=== PATIENT | female | born 1970 | race Two or more races ===

== ENCOUNTER → 2016-07-31 | Outpatient (REF) | payer OTHER | LOC: M LAB REF 17:14 | PROVIDERS: ATTEND Physician Assistant | DX: R50.9 Fever, unspecified (principal) ==

== ENCOUNTER → 2017-02-06 | Outpatient (REF) | payer OTHER ==
[2017-02-06 12:47] LABS: MEAN CORPUSCULAR HEMOGLOBIN 30.6 pg (27.0-33.0); MEAN CORPUSCULAR HGB CONC 34.3 g/dl (32.0-36.5); MEAN CORPUSCULAR VOLUME 89.4 fl (80.0-96.0); RED CELL DISTRIBUTION WIDTH 11.7 % (11.5-14.5); WHITE BLOOD COUNT 4.8 K/mm3 (4.0-10.0)
[2017-02-06 13:36] LABS: ALBUMIN/GLOBULIN RATIO 1.18 (1.00-1.93); ALKALINE PHOSPHATASE 48 U/L (45-117); ALT/SGPT 20 U/L (12-78); ANION GAP 5 MEQ/L (8-16); AST/SGOT 16 U/L (15-37); BILIRUBIN,TOTAL 0.4 MG/DL (0.2-1.0); BLOOD UREA NITROGEN 22 MG/DL (7-18); CALCIUM LEVEL 9.3 MG/DL (8.5-10.1); CARBON DIOXIDE LEVEL 29 MEQ/L (21-32); CHLORIDE LEVEL 107 MEQ/L (98-107); CHOLESTEROL LEVEL 211 MG/DL (<200); CREATININE FOR GFR 0.82 MG/DL (0.55-1.02); FERRITIN 52 NG/ML (8-252); GLOMERULAR FILTRATION RATE > 60.0 (>58); GLUCOSE, FASTING 84 MG/DL (70-105); PERCENT SATURATION 30.6 % (13.2-45.0); POTASSIUM SERUM 4.7 MEQ/L (3.5-5.1); SODIUM LEVEL 141 MEQ/L (136-145); TOTAL IRON BINDING CAPACITY 258 UG/DL (250-450); TOTAL PROTEIN 7.4 GM/DL (6.4-8.2); TRIGLYCERIDES LEVEL 67 MG/DL (<150)
== END ==
LOC: M SFHCADAM 08:16
PROVIDERS: ATTEND Family Medicine
DX: D50.0 Iron deficiency anemia secondary to blood loss (chronic) (principal); G43.709 Chronic migraine without aura, not intractable, without status migrainosus; Z13.220 Encounter for screening for lipoid disorders

== ENCOUNTER → 2017-02-11 | Outpatient (CLI) | payer OTHER ==
--- NOTE | 2017-02-12 07:16 | REP ---
Clinical: Chest pain . Comparison: 02/08/2013 . Technique: PA and lateral. Findings: The mediastinum and cardiac silhouette are normal. The lung lyman are clear and without acute consolidation, effusion, or pneumothorax. The skeletal structures are intact and normal. Impression: 1. No acute cardiopulmonary process. Signed by Reynaldo Mast MD 02/12/2017 07:08 A
== END ==
LOC: M ADAMS 16:31
PROVIDERS: ATTEND Family Medicine
DX: R09.89 Other specified symptoms and signs involving the circulatory and respiratory systems (principal)

== ENCOUNTER → 2017-02-27 | Outpatient (REF) | payer OTHER | LOC: M SFHCADAM 12:28 | PROVIDERS: ATTEND Physician Assistant | DX: Z12.4 Encounter for screening for malignant neoplasm of cervix (principal) ==

== ENCOUNTER → 2017-12-01 | Outpatient (CLI) | payer OTHER | LOC: M ADAMS 11:54 | DX: R09.1 Pleurisy (principal) | CPT/HCPCS: 71046 ==

== ENCOUNTER → 2017-12-01 | Outpatient (REF) | payer OTHER ==
[2017-12-01 20:01] LABS: BASO % 0.7 % (0.0-1.0); EOS # 0.2 10^3/uL (0.0-0.50); EOS % 3.3 % (0.0-3.0); HEMATOCRIT 39.7 % (36.0-47.0); HEMOGLOBIN 13.7 g/dl (12.0-15.5); IMMATURE GRANULOCYTE % 0.2 % (0-3.0); LYMPH # 2.3 10^3/uL (1.5-4.5); LYMPH % 42.5 % (24.0-44.0); MEAN CORPUSCULAR HEMOGLOBIN 32.5 pg (27.0-33.0); MEAN CORPUSCULAR HGB CONC 34.5 g/dl (32.0-36.5); MEAN CORPUSCULAR VOLUME 94.1 fl (80.0-96.0); MONO # 0.5 10^3/uL (0.0-0.8); MONO % 8.9 % (0.0-5.0); NEUTROPHILS # 2.4 10^3/uL (1.8-7.7); NEUTROPHILS % 44.4 % (36.0-66.0); PLATELET COUNT, AUTOMATED 221 10^3/uL (150-450); RED BLOOD COUNT 4.22 10^6/uL (4.00-5.40); RED CELL DISTRIBUTION WIDTH 12.2 % (11.5-14.5); WHITE BLOOD COUNT 5.4 10^3/uL (4.0-10.0)
[2017-12-01 20:09] LABS: ANION GAP 6 MEQ/L (8-16); BLOOD UREA NITROGEN 17 MG/DL (7-18); CALCIUM LEVEL 9.2 MG/DL (8.5-10.1); CARBON DIOXIDE LEVEL 29 MEQ/L (21-32); CHLORIDE LEVEL 107 MEQ/L (98-107); CREATININE FOR GFR 0.83 MG/DL (0.55-1.30); GLOMERULAR FILTRATION RATE > 60.0 (>58); GLUCOSE, FASTING 76 MG/DL (70-100); POTASSIUM SERUM 4.2 MEQ/L (3.5-5.1); SODIUM LEVEL 142 MEQ/L (136-145)
[2017-12-01 20:21] LABS: ERYTHROCYTE SEDIMENTATION RATE 16 mm/hr (0-20)
== END ==
LOC: M SFHCADAM 11:50
DX: R09.1 Pleurisy (principal)

== ENCOUNTER → 2018-04-01 | Outpatient (CLI) | payer OTHER | LOC: M RAD 15:30 | DX: L76.82 Other postprocedural complications of skin and subcutaneous tissue (principal) | CPT/HCPCS: 76705 ==

== ENCOUNTER → 2018-04-01 | Outpatient (REF) | payer OTHER | LOC: M SFHCADAM 14:39 | DX: R30.0 Dysuria (principal) | CPT/HCPCS: 87086 ==

== ENCOUNTER → 2018-04-01 | Outpatient (REF) | payer OTHER | LOC: M SFHCADAM 19:10 | DX: R30.0 Dysuria (principal) ==

== ENCOUNTER → 2018-06-25 | Outpatient (REF) | payer OTHER ==
[2018-06-25 19:27] LABS: CALCIUM LEVEL 9.4 MG/DL (8.5-10.1); CREATININE FOR GFR 1.12 MG/DL (0.55-1.30); GLOMERULAR FILTRATION RATE 55.8 (>58)
== END ==
LOC: M SFHCADAM 15:01
PROVIDERS: ATTEND Family Medicine
DX: N18.2 Chronic kidney disease, stage 2 (mild) (principal); Z52.4 Kidney donor

== ENCOUNTER → 2019-05-04 | Outpatient (CLI) | payer OTHER ==
--- NOTE | 2019-05-04 14:39 | REPPI ---
Left unilateral rib series: Five views including PA chest. History: Left flank pain left rib side pain. Comparison chest x-ray: December 01, 2017. Findings: PA chest radiograph is normal. There is no evidence of pneumothorax or hydrothorax. Mediastinum is not widened. Heart size is normal. Pleural angles are sharp. No infiltrate is seen. Multiple views of the left rib cage show clips in the left upper quadrant of the abdomen. The left rib cage is intact. No rib fracture or bony destructive lesion is appreciated. Impression: Negative radiographs of the left rib cage. Electronically Signed by Christiano Villanueva MD 05/04/2019 02:31 P
== END ==
LOC: M PLAIMG 10:48
PROVIDERS: ATTEND Nurse Practitioner Family
DX: R10.9 Unspecified abdominal pain (principal)

== ENCOUNTER → 2019-06-21 | Outpatient (CLI) | payer OTHER ==
--- NOTE | 2019-06-22 04:44 | REP ---
Clinical: Stage III chronic renal disease. Technique: Real time cyr scale ultrasound examination using curved array transducer. Findings: The right kidney is normal in reniform shape and echogenicity without significant hydronephrosis. A 10 mm complex cyst in the midpole region is suggested along with mild pelviectasis. Bladder is unremarkable and right ureteral jet is noted. Given history of left kidney donation. Impression: 10 mm complex cyst in the mid pole right kidney. Mild fullness to the collecting system without erick hydronephrosis. Electronically Signed by Reynaldo Mast MD 06/22/2019 04:35 A
== END ==
LOC: M RAD 16:23
PROVIDERS: ATTEND Nurse Practitioner Family
DX: Z52.4 Kidney donor (principal); N18.3 Chronic kidney disease, stage 3 (moderate)

== ENCOUNTER → 2020-05-22 | Outpatient (CLI) | payer OTHER ==
--- NOTE | 2020-05-23 07:55 | REP ---
INDICATION: CYST OF KIDNEY CKD III COMPARISON: Renal ultrasound dated 06/21/2019 TECHNIQUE: Axial noncontrast images from the lung bases to the pubic symphysis with coronal and sagittal reformations. This CT examination was performed using the following dose reduction techniques: Automated exposure control, adjustment of mA and/or kv according to the patient's size, and use of iterative reconstruction technique. FINDINGS: Lung bases are clear. Visualized heart and pericardium normal. Liver, spleen, pancreas, gallbladder, and bilateral adrenal glands are normal. Patient is noted to be status post left nephrectomy. The right kidney appears relatively normal although subtle 1 cm hypodense lesion along the lateral midpole cannot be excluded. The enteric system is unremarkable and without obstruction or acute inflammatory process. Normal terminal ileum and appendix identified in the right lower quadrant. Pelvis demonstrates normal bladder and age-appropriate uterus/adnexa. Patient appears to be status post tubal ligation, but the right-sided clip appears to be free in the upper pelvis no longer related to the right adnexa. No ascites. No free air. No adenopathy. No focal inflammatory stranding. Abdominal aorta without aneurysm. Musculoskeletal structures are intact and without acute osseous abnormality. IMPRESSION: 1. Solitary right kidney with suggestion for 1 cm midpole cyst is incompletely evaluated due to the lack of contrast enhancement. 2. Remainder of the examination is relatively normal as above. <Electronically signed by Reynaldo Mast > 05/23/20 [id number]
== END ==
LOC: M RAD 18:15
PROVIDERS: ATTEND Nurse Practitioner Family
DX: N18.31 Chronic kidney disease, stage 3a (principal); N28.1 Cyst of kidney, acquired

== ENCOUNTER → 2021-05-29 | Outpatient (CLI) | payer OTHER | LOC: M RAD 16:07 | PROVIDERS: ATTEND Nurse Practitioner Family | DX: N28.1 Cyst of kidney, acquired (principal); N18.31 Chronic kidney disease, stage 3a ==

== ENCOUNTER → 2021-07-09 | Outpatient (REF) | payer OTHER ==
[2021-07-09 19:08] LABS: BACTERIA, URINE AUTO NEGATIVE (NEGATIVE); MUCUS, URINE SMALL (NEGATIVE); RBC, URINE AUTO 0 /HPF (0-3); SQUAMOUS EPITHELIAL CELL UR AU 0 /HPF (0-6); WBC, URINE AUTO 4 /HPF (0-3)
== END ==
LOC: M LAB REF 16:43
PROVIDERS: ATTEND Nurse Practitioner Family
DX: E83.42 Hypomagnesemia (principal); R31.9 Hematuria, unspecified

== ENCOUNTER → 2022-02-07 | Outpatient (CLI) | payer OTHER | LOC: M WUC 14:58 | PROVIDERS: ATTEND Nurse Practitioner Family | DX: Z11.1 Encounter for screening for respiratory tuberculosis (principal) ==

== ENCOUNTER → 2023-08-10 | Outpatient (REF) | payer OTHER | LOC: M PLALAB 15:29 | PROVIDERS: ATTEND Obstetrics & Gynecology | DX: Z01.419 Encounter for gynecological examination (general) (routine) without abnormal findings (principal) | CPT/HCPCS: 87624; G0123 ==

== ENCOUNTER → 2023-09-23 | Outpatient (CLI) | payer OTHER | LOC: M WHC 14:53 | PROVIDERS: ATTEND Obstetrics & Gynecology | DX: Z12.31 Encounter for screening mammogram for malignant neoplasm of breast (principal) ==

== ENCOUNTER → 2024-05-31 | Outpatient (CLI) | payer OTHER | LOC: M LAB 12:43 | PROVIDERS: ATTEND Physician Assistant | DX: Z20.828 Contact with and (suspected) exposure to other viral communicable diseases (principal); W57.XXXA Bitten or stung by nonvenomous insect and other nonvenomous arthropods, initial encounter ==

== ENCOUNTER → 2024-09-29 | Outpatient (CLI) | payer OTHER | LOC: M WHC 06:35 | PROVIDERS: ATTEND Nurse Practitioner Family | DX: N20.2 Calculus of kidney with calculus of ureter (principal) ==